=== PATIENT | male | born 1950 | race Caucasian/White ===

== ENCOUNTER 2016-12-01 00:11 | Inpatient (IN) | payer MEDICARE, OTHER ==
[~2016-12-01] VITALS: Ht 175.3 cm; Wt 60.0 kg
[2016-12-01 00:34] LABS: BASO # 0.1 (0.0-0.2); BASO % 0.5 % (0.0-2.0); EOS # 0.1 (0.0-0.7); EOS % 0.6 % (0-4.0); GRAN # 15.1 (1.4-6.5); GRAN % 83.7 % (42.2-75.2); HEMATOCRIT 44.1 % (42.0-52.0); HEMOGLOBIN 15.4 g/dl (13.5-18.0); LYMPH # 1.3 (1.2-3.4); MEAN CELL VOLUME 98 fl (80.0-100.0); MEAN CORPUSCULAR HEMOGLOBIN 34 pg (27.0-31.0); MEAN CORPUSCULAR HGB CONC 35 g/dl (33.0-37.0); MONO # 1.4 (0.1-0.6); MONO % 7.8 % (1.7-9.3); PLATELET COUNT 258 K/mm3 (130-400); RED BLOOD COUNT 4.48 M/mm3 (4.20-5.60); REDCELL DISTRIBUTION WIDTH-CV 13.5 % (11.5-14.5); WHITE BLOOD COUNT 18.1 K/mm3 (4.8-10.8)
[2016-12-01 00:44] LABS: ANION GAP 11 mmol/L (7-16); BLOOD UREA NITROGEN 9 mg/dL (9-20); CALCIUM 8.8 mg/dL (8.4-10.2); CARBON DIOXIDE 30 mmol/L (22-30); CHLORIDE 93 mmol/L (98-107); CREATININE, serum 0.67 mg/dL (0.66-1.25); GLUCOSE 100 mg/dL (74-106); POTASSIUM 4.5 mmol/L (3.4-5.0); SODIUM 135 mmol/L (137-145)
[2016-12-01 00:56] LABS: B-TYPE NATRIURETIC PEPTIDE 115 pg/mL (0-125); TROPONIN-I < 0.012 ng/mL (0.000-0.034)
[2016-12-01 02:51] VITALS: BP 101/55; PULSE 78; TEMP 98.1
[2016-12-01 08:28] VITALS: BP 111/68; PULSE 84; TEMP 97.9
[2016-12-01 13:05] VITALS: BP 112/64; PULSE 77; TEMP 98.4
[2016-12-01 15:35] VITALS: BP 113/58; PULSE 98; TEMP 98.4
[2016-12-01 21:55] VITALS: BP 111/60; PULSE 90; TEMP 98.3
[2016-12-02] VITALS (7 sets, daily range): BP systolic 104–116; BP diastolic 59–74; PULSE 81–98; TEMP 98–98.5
[2016-12-02 11:30] LABS: HEMATOCRIT 42.3 % (42.0-52.0); HEMOGLOBIN 14.1 g/dl (13.5-18.0); MEAN CELL VOLUME 102 fl (80.0-100.0); MEAN CORPUSCULAR HEMOGLOBIN 34 pg (27.0-31.0); MEAN CORPUSCULAR HGB CONC 33 g/dl (33.0-37.0); MEAN PLATELET VOLUME 10.6 fl (7.4-10.4); PLATELET COUNT 273 K/mm3 (130-400); RED BLOOD COUNT 4.13 M/mm3 (4.20-5.60); REDCELL DISTRIBUTION WIDTH-CV 14.3 % (11.5-14.5)
[2016-12-02 11:40] LABS: WHITE BLOOD COUNT 27.2 K/mm3 (4.8-10.8)
[2016-12-02 11:59] LABS: CALCIUM 8.7 mg/dL (8.4-10.2); CREATININE, serum 0.6 mg/dL (0.66-1.25); POTASSIUM 3.8 mmol/L (3.4-5.0)
[2016-12-03 03:12] VITALS: BP 120/69; PULSE 90; TEMP 97.7
[2016-12-03 08:26] VITALS: BP 111/78; PULSE 112; TEMP 98.4
[2016-12-03 10:20] LABS: ARTERIAL BLD GAS O2 SATURATION 92.3 % (92-100); ARTERIAL BLD GAS TCO2 CT 35.1; ARTERIAL BLOOD GAS BASE EXCESS 7.3 (-2-2); ARTERIAL BLOOD GAS HCO3 33.5 meq/L (22-26); ARTERIAL BLOOD GAS PHT 7.42 C (7.35-7.45); ARTERIAL BLOOD GAS PO2 62.3 mmHg (80-100); ARTERIAL BLOOD GAS PO2T 62.3 (80-100); ARTERIAL BLOOD GAS pH 7.42 (7.35-7.45); OXYHEMOGLOBIN 91.5 %
[2016-12-03 10:21] LABS: ALLEN TEST YES; ALLENS TEST RESULT PASS; ATS? YES
[2016-12-03 11:41] VITALS: BP 106/58; PULSE 90; TEMP 98.5
[2016-12-03 17:32] VITALS: BP 157/68; PULSE 81; TEMP 98.8
[2016-12-03 20:59] VITALS: BP 141/121; PULSE 99; TEMP 98.5
[2016-12-03 23:48] VITALS: BP 115/73; PULSE 81; TEMP 98.3
[2016-12-04 04:30] VITALS: BP 131/80; PULSE 77; TEMP 97.9
[2016-12-04 07:39] VITALS: BP 96/64; PULSE 96; TEMP 98
[2016-12-04 11:36] VITALS: BP 115/69; PULSE 106; TEMP 98
[2016-12-04 16:19] VITALS: BP 139/64; PULSE 112; TEMP 97.4
[2016-12-04] MEDS ORDERED: IPRATROPIUM BROM3 M1 IH (16:31)
[2016-12-04] MEDS ORDERED: LEVAQUIN 750MG750 M1 PO (16:31)
[2016-12-04] MEDS ORDERED: NICODERM C21 MG/PATC TD ×2 (16:32→16:33)
[2016-12-04] MEDS ORDERED: NICORETTE GUM2 MG BC (16:33)
[2016-12-04] MEDS ORDERED: UNIPHYL 400MG400 MG PO (16:34)
[2016-12-04] MEDS ORDERED: PREDNISONE10 MG PO (16:35)
== END 2016-12-04 18:21 | disposition home or self-care (01) | DRG 190 ==
LOC: COL.ER 00:11 → MEDICAL 00:17
PROVIDERS: Emergency Medicine; Internal Medicine Cardiovascular Disease; Internal Medicine Pulmonary Disease
DX: J44.1 Chronic obstructive pulmonary disease with (acute) exacerbation (principal); E43 Unspecified severe protein-calorie malnutrition; Z68.1 Body mass index [BMI] 19.9 or less, adult; J20.9 Acute bronchitis, unspecified; J44.0 Chronic obstructive pulmonary disease with (acute) lower respiratory infection; F17.210 Nicotine dependence, cigarettes, uncomplicated
CPT/HCPCS: 99222-AI; 99232-AI; 99239; G0378; J2060; J2920; J7030; J7512; Q9967